=== PATIENT | male | born 1985 | race Caucasian/White ===

== ENCOUNTER 2019-10-09 13:32 | Emergency (ER) | payer BC ==
[~2019-10-09] VITALS: Ht 193 cm; Wt 125.0 kg
[2019-10-09 13:45] VITALS: BP 184/88
--- NOTE | 2019-10-09 14:16 | RAD ---
PROCEDURE: ANKLE RIGHT 3V STUDY DATE: 10/09/2019 CLINICAL INDICATION / HISTORY: Right ankle pain after rolling it yesterday. TECHNIQUE: Right ankle 3 views. COMPARISON: None FINDINGS: The ankle mortise is approximated, and the talar dome is unremarkable. The joint space widths are maintained. An ossific density distal aspect of the lateral malleolus is present that appears well corticated and could represent a secondary ossification center versus a tiny avulsion fracture fragment. No definite donor site is seen. There is however exuberant asymmetric soft tissue swelling over the lateral malleolus is overall present circumferentially. IMPRESSION: Right ankle sprain with equivocal findings for possible tiny avulsion fracture of the distal aspect of the lateral malleolus versus an os subfibulare (a normal variant). Correlate with physical exam. Electronically signed by: Dain Ruiz MD (10/09/2019 2:13 PM) [id number]
[2019-10-09] MEDS ORDERED: HYDR-3164 PO (15:07)
[2019-10-09] MEDS ORDERED: NAPR500T8 PO (15:07)
--- NOTE | 2019-10-09 15:08 | PHYS DOC ---
Past Medical History Past Medical History: No Pertinent History Smoking Status: Current Every Day Smoker Alcohol Use: Occasionally General Adult EDM: Chief Complaint: ANKLE PROBLEM HPI: HPI: Patient is a 34 year old male who presents to the ED today complaining of 7 out of 10 right lateral ankle pain that began yesterday after he missed a step and rolled his ankle. Patient reports the pain is throbbing and sharp worse on weightbearing. Denies anything specifically relieving the pain. Review of Systems: Review of Systems: Constitutional: Denies fever or chills. [] Musculoskeletal: Reports right ankle pain Integument: Denies rash. [] Neurologic: Denies headache, focal weakness or sensory changes. [] Psychiatric: Denies depression or anxiety. [] Heart Score: Risk Factors: Risk Factors: DM, Current or recent (<one month) smoker, HTN, HLP, family history of CAD, obesity. Risk Scores: Score 0 - 3: 2.5% MACE over next 6 weeks - Discharge Home Score 4 - 6: 20.3% MACE over next 6 weeks - Admit for Clinical Observation Score 7 - 10: 72.7% MACE over next 6 weeks - Early Invasive Strategies Physical Exam: PE: Constitutional: Well developed, well nourished, no acute distress, non-toxic appearance. [] Skin: Warm, dry, no erythema, no rash. [] Back: No tenderness, no CVA tenderness. [] Extremities: Right ankle with moderate swelling, no ecchymosis, tenderness on palpation of the right lateral ankle. Full range of motion to the right ankle and toes. +2 right pedal pulse. Cap refill less than 2 seconds the right toes. Neurologic: Alert and oriented X 3, normal motor function, normal sensory function, no focal deficits noted. [] Psychologic: Affect normal, judgement normal, mood normal. [] Current Patient Data: Vital Signs: Vital Signs Date Time Temp Pulse Resp B/P (MAP) Pulse Ox O2 Delivery O2 Flow Rate FiO2 10/09/19 13:45 98.6 99 16 184/88 (120) 97 Room Air 98.6 EKG: EKG: [] Radiology/Procedures: Radiology/Procedures: []PROCEDURE: ANKLE RIGHT 3V PROCEDURE: ANKLE RIGHT 3V STUDY DATE: 10/09/2019 CLINICAL INDICATION / HISTORY: Right ankle pain after rolling it yesterday. TECHNIQUE: Right ankle 3 views. COMPARISON: None FINDINGS: The ankle mortise is approximated, and the talar dome is unremarkable. The joint space widths are maintained. An ossific density distal aspect of the lateral malleolus is present that appears well corticated and could represent a secondary ossification center versus a tiny avulsion fracture fragment. No definite donor site is seen. There is however exuberant asymmetric soft tissue swelling over the lateral malleolus is overall present circumferentially. IMPRESSION: Right ankle sprain with equivocal findings for possible tiny avulsion fracture of the distal aspect of the lateral malleolus versus an os subfibulare (a normal variant). Correlate with physical exam. Electronically signed by: Kyleigh Ruiz MD (10/09/2019 2:13 PM) [id number] DICTATED and SIGNED BY: KYLEIGH RUIZ MD DATE: 10/09/19 1413 Course & Med Decision Making: Course & Med Decision Making Pertinent Labs and Imaging studies reviewed. (See chart for details) This is a 34-year-old male patient presenting to the ED today with right ankle pain that began yesterday after he rolled his ankle. Right ankle x-rays interpreted by radiologist were noted for right ankle sprain with equivocal fin dings for possible tiny avulsion fracture of the distal aspect of the lateral malleolus versus an os subfibulare (a normal variant). Correlate with physical exam. Patient has pain to this region, likely an avulsion fracture. Patient was placed in a stirrup splint by the electromechanical technician, neurovascular exam done by me is normal, ice elevation encouraged. Follow-up with orthopedic doctor in the course of this week. Chase Disclaimer: Chase Disclaimer: This electronic medical record was generated, in whole or in part, using a voice recognition dictation system. Departure Departure Impression: Primary Impression: Avulsion fracture of ankle Qualified Codes: S82.891A - Other fracture of right lower leg, initial encounter for closed fracture Disposition: 01 HOME, SELF-CARE Condition: STABLE Referrals: NO PCP (PCP) TYRA HOFF MD Call his office tomorrow and set up a follow-up appointment Patient Instructions: Avulsion Fracture Additional Instructions: You were seen in the emergency room for right ankle pain, your right ankle x- rays were noted for possible avulsion fracture. We put you in a splint, try to ice and elevate the extremity. Follow-up with orthopedic doctor provided by calling his office tomorrow and setting up a follow-up appointment. Scripts Hydrocodone/Apap 5-325 (NORCO 5-325 TABLET) 1 Each Tablet 1 TAB PO Q6HRS, #14 TAB Prov: PIEDAD CARD APRN 10/09/19 Naproxen (NAPROXEN) 500 Mg Tablet. 1 TAB PO BID, #60 TAB 2 Refills Prov: PIEDAD CARD APRN 10/09/19 PIEDAD CARD APRN October 09, 2019 15:08
== END 2019-10-09 15:20 | disposition home or self-care (01) ==
LOC: ER 13:32
DX: S82.891A Other fracture of right lower leg, initial encounter for closed fracture (principal); F17.200 Nicotine dependence, unspecified, uncomplicated; X50.9XXA Other and unspecified overexertion or strenuous movements or postures, initial encounter; Y93.89 Activity, other specified; Y92.89 Other specified places as the place of occurrence of the external cause; Y99.9 Unspecified external cause status
CPT/HCPCS: 29515; 73610; 99283

== ENCOUNTER → 2021-10-16 | Emergency (ER) | payer BC ==
[~2021-10-16] VITALS: Ht 195.6 cm; Wt 125.0 kg
[~2021-10-16] MED LIST: HYDR-3164 PO; NAPR500T8 PO
[2021-10-16 16:27] VITALS: BP 156/74
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
== END | disposition home or self-care (01) ==
LOC: ER 16:21
DX: S62.336A Displaced fracture of neck of fifth metacarpal bone, right hand, initial encounter for closed fracture (principal); F17.200 Nicotine dependence, unspecified, uncomplicated; Y08.89XA Assault by other specified means, initial encounter; Y93.89 Activity, other specified; Y92.89 Other specified places as the place of occurrence of the external cause; Y99.8 Other external cause status
CPT/HCPCS: 29125; 73130; 99283